=== PATIENT | male | born 1990 | race Caucasian/White ===

== ENCOUNTER 2022-12-12 13:51 | Outpatient (CLI) | payer BC | END 2022-12-12 13:52 | disposition home or self-care (01) | LOC: CT 13:51 | PROVIDERS: ATTEND Urology | DX: I86.1 Scrotal varices (principal); I70.1 Atherosclerosis of renal artery; R31.9 Hematuria, unspecified; R80.9 Proteinuria, unspecified | CPT/HCPCS: 74174; 76870; 93976 ==